=== PATIENT | male | born 1955 | race Caucasian/White ===

== ENCOUNTER 2022-04-25 14:25 | Inpatient (IN) | payer OTHER ==
[~2022-04-25] VITALS: Ht 177.8 cm; Wt 79.3 kg
[2022-04-25 15:07] LABS: BASOPHILS % (AUTO) 0.8 % (0.0-5.0); EOSINOPHILS % (AUTO) 5.4 % (0.0-8.0); HEMATOCRIT 36.2 % (42-54); LYMPHOCYTES % (AUTO) 22.2 % (21.0-51.0); MEAN CORPUSCULAR HEMOGLOBIN 27.5 pg (27.0-33.0); MEAN CORPUSCULAR HGB CONC 32.9 g/dL (32.0-36.0); MEAN CORPUSCULAR VOLUME 83.8 fL (79-99); NEUTROPHILS % (AUTO) 60.1 % (40.0-77.0); PLATELET COUNT (AUTO) 375 K/uL (130-400); RED BLOOD CELL COUNT(AUTO) 4.32 MIL/uL (4.50-6.20); RED CELL DISTRIBUTION WIDTH 14.9 % (11.0-15.5); WHITE BLOOD COUNT (AUTO) 8.9 K/uL (4.8-10.8)
[2022-04-25 15:30] LABS: ALBUMIN 2.9 g/dL (3.5-5.0); CREATININE 0.8 mg/dL (0.5-1.5); POTASSIUM 3.7 mmol/L (3.5-5.1); TOTAL PROTEIN, SERUM 7.6 g/dL (6.0-8.3)
[2022-04-25] MEDS ORDERED: CEFTRIAXONE 1G VIAL IVP ONE (15:30)
[2022-04-25] MEDS ORDERED: AZITHROMYCIN 500MG+NS 250ML IVPB SCH (15:30)
[2022-04-25] MEDS ORDERED: IPRATROPIUM/ALBUTEROL SULFATE 3 ML SOLUTION IH ONE (15:30)
[2022-04-25 16:56] LABS: APPEARANCE,URINE CLEAR (CLEAR); BILIRUBIN,URINE NEGATIVE (NEGATIVE); COLOR,URINE YELLOW (YELLOW); GLUCOSE, URINE (UA) NEGATIVE (NEGATIVE); KETONES,URINE NEGATIVE (NEGATIVE); LEUKOCYTE ESTERASE ,URINE NEGATIVE (NEGATIVE); NITRATE,URINE NEGATIVE (NEGATIVE); OCCULT BLOOD,URINE NEGATIVE (NEGATIVE); PH,URINE 5.5 (5.0-8.0); PROTEIN,URINE NEGATIVE (NEGATIVE); UROBILINOGEN,URINE 0.2 mg/dL (0.2-1.0)
[2022-04-25] MEDS ORDERED: 0.9% NACL 500ML IV.SOLN 500 ML IV ONE (17:00)
[2022-04-25] MEDS ORDERED: CEFEPIME HCL 2 GM VIAL IVP SCH (17:30)
[2022-04-25] MEDS ORDERED: VANCOMYCIN PROTOCOL PER PHARMACY IV SCH (17:30)
[2022-04-25] MEDS ORDERED: COMPOUND IV REFRIGERATED 1 EACH IVSOLN MISC PRN (18:00)
[2022-04-25 18:29] LABS: HEMOGLOBIN A1C 6.6 % (4.0-6.0)
[2022-04-25 19:16] LABS: CRP QUANTITATIVE 34.5 mg/L (0.00-9.0); THYROID STIMULATING HORMONE 2.14 uIU/mL (0.36-3.74)
[2022-04-25] MEDS: 0.9%NACL 1000ML 1,000 ML IV SCH (19:34)
[2022-04-25] MEDS: VANCOMYCIN 1.25GM/NS 250ML IVPB SCH ×2 (19:34)
[2022-04-25] MEDS: INSULIN HUMULIN R 100 UNIT/ML 3ML SQ SCH (21:00)
[2022-04-25] MEDS: DOXYCYCLINE HYCLATE 100 MG TABLET PO SCH (21:13)
[2022-04-25] MEDS: CEFEPIME HCL 2 GM VIAL IVP SCH (21:13)
[2022-04-26 01:39] VITALS: BP 154/72
[2022-04-26 04:31] VITALS: BP 146/87
[2022-04-26] MEDS: CEFEPIME HCL 2 GM VIAL IVP SCH ×3 (05:00→21:10)
[2022-04-26] MEDS: INSULIN HUMULIN R 100 UNIT/ML 3ML SQ SCH ×4 (06:46→21:00)
[2022-04-26 07:12] LABS: BASOPHILS % (AUTO) 0.6 % (0.0-5.0); HEMATOCRIT 33.6 % (42-54); LYMPHOCYTES % (AUTO) 18.4 % (21.0-51.0); MEAN CORPUSCULAR HEMOGLOBIN 27.4 pg (27.0-33.0); MEAN CORPUSCULAR HGB CONC 32.7 g/dL (32.0-36.0); MEAN CORPUSCULAR VOLUME 83.8 fL (79-99); MONOCYTES % (AUTO) 8.7 % (3.0-13.0); NEUTROPHILS % (AUTO) 65.9 % (40.0-77.0); PLATELET COUNT (AUTO) 298 K/uL (130-400); RED BLOOD CELL COUNT(AUTO) 4.01 MIL/uL (4.50-6.20); RED CELL DISTRIBUTION WIDTH 14.9 % (11.0-15.5); WHITE BLOOD COUNT (AUTO) 7.8 K/uL (4.8-10.8)
[2022-04-26 07:46] LABS: ABG BASE EXCESS 2.9 mmol/L (-2.0-3.0); ABG HCO3 27.1 mmol/L (21.0-28.0); ABG OXYGEN SATURATION 93.8 % (95.0-99.0); ABG PCO2 40 mmHg (35-48)
[2022-04-26 08:00] VITALS: BP 148/81
[2022-04-26 08:03] LABS: ALBUMIN 2.7 g/dL (3.5-5.0); CREATININE 0.8 mg/dL (0.5-1.5); MAGNESIUM 1.6 mg/dL (1.80-2.40); POTASSIUM 3.6 mmol/L (3.5-5.1); TOTAL PROTEIN, SERUM 7.1 g/dL (6.0-8.3)
[2022-04-26 08:08] LABS: INR 0.99 (0.85-1.15); PROTHROMBIN TIME 10.8 SEC (9.6-11.6)
[2022-04-26 08:09] LABS: PARTIAL THROMBOPLASTIN TIME 31.9 SEC (26.3-35.5)
[2022-04-26] MEDS: DOXYCYCLINE HYCLATE 100 MG TABLET PO SCH ×2 (08:22→21:10)
[2022-04-26] MEDS: PANTOPRAZOLE 40 MG TAB DR PO SCH (08:22)
[2022-04-26] MEDS: VANCOMYCIN 1.25GM/NS 250ML IVPB SCH ×2 (08:23)
[2022-04-26] MEDS: 0.9%NACL 1000ML 1,000 ML IV SCH (08:25)
[2022-04-26] MEDS: NICOTINE 14 MG/ 24 HR PATCH TD SCH (08:28)
[2022-04-26] MEDS ORDERED: MAGNESIUM 2GM PREMIX 50ML 50 ML IV PRN (09:00)
[2022-04-26] MEDS: IPRATROPIUM/ALBUTEROL SULFATE 3 ML SOLUTION IH PRN ×3 (11:17→23:07)
[2022-04-26 11:22] VITALS: BP 142/79
[2022-04-26] MEDS ORDERED: BUPR100T13 PO (12:37)
[2022-04-26] MEDS ORDERED: FLUT1BLS12 IH (12:37)
[2022-04-26] MEDS ORDERED: BICA50TA7 PO (12:37)
[2022-04-26] MEDS ORDERED: HYDR-4068 PO (12:37)
[2022-04-26] MEDS ORDERED: LISI10TA24 PO (12:37)
[2022-04-26] MEDS ORDERED: BUPR-113 PO (12:37)
[2022-04-26] MEDS ORDERED: KETO5DRO6 OP (12:37)
[2022-04-26] MEDS ORDERED: AMLO-257 PO (13:20)
[2022-04-26 16:00] VITALS: BP 131/71
[2022-04-26 20:38] VITALS: BP 136/70
[2022-04-26] MEDS ORDERED: SOLU-MEDROL 40MG VIAL IVP SCH (21:00)
[2022-04-27] MEDS: 0.9%NACL 1000ML 1,000 ML IV SCH (00:18)
[2022-04-27 00:20] VITALS: BP 130/68
[2022-04-27] MEDS: CEFEPIME HCL 2 GM VIAL IVP SCH ×3 (04:04→20:56)
[2022-04-27 04:40] VITALS: BP 147/78
[2022-04-27] MEDS: INSULIN HUMULIN R 100 UNIT/ML 3ML SQ SCH (06:08)
[2022-04-27] MEDS: IPRATROPIUM/ALBUTEROL SULFATE 3 ML SOLUTION IH PRN ×3 (06:38→18:44)
[2022-04-27 07:04] LABS: BASOPHILS % (AUTO) 0.7 % (0.0-5.0); EOSINOPHILS % (AUTO) 6.4 % (0.0-8.0); LYMPHOCYTES % (AUTO) 21.7 % (21.0-51.0); MEAN CORPUSCULAR HEMOGLOBIN 27.4 pg (27.0-33.0); MEAN CORPUSCULAR HGB CONC 32.1 g/dL (32.0-36.0); MEAN CORPUSCULAR VOLUME 85.3 fL (79-99); MONOCYTES % (AUTO) 9.5 % (3.0-13.0); NEUTROPHILS % (AUTO) 61.4 % (40.0-77.0); PLATELET COUNT (AUTO) 281 K/uL (130-400); RED BLOOD CELL COUNT(AUTO) 3.87 MIL/uL (4.50-6.20); RED CELL DISTRIBUTION WIDTH 15.4 % (11.0-15.5); WHITE BLOOD COUNT (AUTO) 6.7 K/uL (4.8-10.8)
[2022-04-27 07:26] LABS: ALBUMIN 2.5 g/dL (3.5-5.0); CREATININE 0.9 mg/dL (0.5-1.5); POTASSIUM 3.5 mmol/L (3.5-5.1); TOTAL PROTEIN, SERUM 6.6 g/dL (6.0-8.3)
[2022-04-27 08:00] VITALS: BP 153/80
[2022-04-27] MEDS: DOXYCYCLINE HYCLATE 100 MG TABLET PO SCH ×2 (08:53→20:56)
[2022-04-27] MEDS: NICOTINE 14 MG/ 24 HR PATCH TD SCH (08:54)
[2022-04-27] MEDS: PANTOPRAZOLE 40 MG TAB DR PO SCH (08:54)
[2022-04-27] MEDS ORDERED: ETHAMBUTOL HCL 400 MG TABLET PO SCH (09:00)
[2022-04-27] MEDS ORDERED: PYRAZINAMIDE 500 MG TABLET PO SCH (09:00)
[2022-04-27] MEDS ORDERED: ISONIAZID 300 MG TAB PO SCH (09:00)
[2022-04-27] MEDS ORDERED: RIFAMPIN 300 MG CAPSULE PO SCH (09:00)
[2022-04-27] MEDS ORDERED: AMLODIPINE 5 MG TAB PO ONE (11:30)
[2022-04-27] MEDS ORDERED: LISINOPRIL 10 MG TABLET PO SCH (11:30)
[2022-04-27 12:00] VITALS: BP 135/72
[2022-04-27] MEDS: AMLODIPINE 5 MG TAB PO SCH (12:59)
[2022-04-27] MEDS ORDERED: SODIUM CHLORIDE 7% INHALATION 4 ML VIAL.NEB IH ONE (15:55)
[2022-04-27 16:00] VITALS: BP 142/75
[2022-04-27] MEDS ORDERED: VANCOMYCIN PROTOCOL PER PHARMACY IV SCH (16:00)
[2022-04-27] MEDS: HYDROCODONE/ACETAMINOPHEN 10/325 MG TAB PO PRN (19:00)
[2022-04-27] MEDS: BUDESONIDE 0.5 MG/2 ML INH IH SCH (19:02)
[2022-04-27] MEDS: VANCOMYCIN 1.25 GM/250 ML BAG 250 ML IV SCH (19:13)
[2022-04-27 20:22] VITALS: BP 152/78
[2022-04-27] MEDS: KETOTIFEN FUMARATE OP SCH (21:00)
[2022-04-28 01:27] VITALS: BP 125/77
[2022-04-28] MEDS: CEFEPIME HCL 2 GM VIAL IVP SCH ×3 (03:42→20:10)
[2022-04-28] MEDS: HYDROCODONE/ACETAMINOPHEN 10/325 MG TAB PO PRN ×3 (03:56→20:11)
[2022-04-28 04:06] VITALS: BP 126/69
[2022-04-28] MEDS: BUDESONIDE 0.5 MG/2 ML INH IH SCH ×2 (07:09→18:58)
[2022-04-28 07:53] LABS: BASOPHILS % (AUTO) 0.7 % (0.0-5.0); EOSINOPHILS % (AUTO) 5.9 % (0.0-8.0); LYMPHOCYTES % (AUTO) 15.9 % (21.0-51.0); MEAN CORPUSCULAR HEMOGLOBIN 27.6 pg (27.0-33.0); MEAN CORPUSCULAR VOLUME 83.5 fL (79-99); MONOCYTES % (AUTO) 8.1 % (3.0-13.0); PLATELET COUNT (AUTO) 321 K/uL (130-400); RED BLOOD CELL COUNT(AUTO) 3.95 MIL/uL (4.50-6.20); RED CELL DISTRIBUTION WIDTH 15.2 % (11.0-15.5); WHITE BLOOD COUNT (AUTO) 8.1 K/uL (4.8-10.8)
[2022-04-28 08:00] VITALS: BP 126/60
[2022-04-28 08:11] LABS: CREATININE 0.9 mg/dL (0.5-1.5); POTASSIUM 3.8 mmol/L (3.5-5.1)
[2022-04-28] MEDS: VANCOMYCIN 1.25 GM/250 ML BAG 250 ML IV SCH ×2 (08:11→20:11)
[2022-04-28] MEDS: DOXYCYCLINE HYCLATE 100 MG TABLET PO SCH ×2 (08:12→20:11)
[2022-04-28] MEDS: AMLODIPINE 5 MG TAB PO SCH (08:12)
[2022-04-28] MEDS: NICOTINE 14 MG/ 24 HR PATCH TD SCH (08:12)
[2022-04-28] MEDS: BUPROPION HCL 150 MG TABLET.SA PO SCH (08:13)
[2022-04-28] MEDS: KETOTIFEN FUMARATE OP SCH ×2 (08:13→20:33)
[2022-04-28] MEDS: PANTOPRAZOLE 40 MG TAB DR PO SCH (08:13)
[2022-04-28] MEDS: BICALUTAMIDE 50 MG PO SCH (08:13)
[2022-04-28] MEDS: BUPROPION HCL 100 MG PO SCH (08:13)
[2022-04-28] MEDS ORDERED: LISINOPRIL 10 MG TABLET PO SCH (09:00)
[2022-04-28] MEDS ORDERED: AMLODIPINE 5 MG TAB PO SCH (09:00)
[2022-04-28] MEDS ORDERED: PYRIDOXINE HCL 50 MG TABLET PO SCH (09:00)
[2022-04-28 12:13] VITALS: BP 105/56
[2022-04-28 16:16] VITALS: BP 134/71
[2022-04-28] MEDS: IPRATROPIUM/ALBUTEROL SULFATE 3 ML SOLUTION IH PRN ×2 (18:45→23:07)
[2022-04-28 20:00] VITALS: BP 131/73
[2022-04-28] MEDS: FAMOTIDINE 20MG VIAL IV SCH (20:10)
[2022-04-29] VITALS (7 sets, daily range): BP systolic 122–142; BP diastolic 76–93
[2022-04-29] MEDS: HYDROCODONE/ACETAMINOPHEN 10/325 MG TAB PO PRN ×3 (03:36→20:36)
[2022-04-29] MEDS: CEFEPIME HCL 2 GM VIAL IVP SCH ×3 (03:36→20:34)
[2022-04-29 04:32] LABS: BASOPHILS % (AUTO) 0.7 % (0.0-5.0); EOSINOPHILS % (AUTO) 8.6 % (0.0-8.0); LYMPHOCYTES % (AUTO) 19.6 % (21.0-51.0); MEAN CORPUSCULAR HEMOGLOBIN 27.4 pg (27.0-33.0); MEAN CORPUSCULAR HGB CONC 32.4 g/dL (32.0-36.0); MEAN CORPUSCULAR VOLUME 84.6 fL (79-99); MONOCYTES % (AUTO) 9.3 % (3.0-13.0); NEUTROPHILS % (AUTO) 61.3 % (40.0-77.0); PLATELET COUNT (AUTO) 321 K/uL (130-400); RED BLOOD CELL COUNT(AUTO) 4.02 MIL/uL (4.50-6.20); RED CELL DISTRIBUTION WIDTH 15.4 % (11.0-15.5); WHITE BLOOD COUNT (AUTO) 7.7 K/uL (4.8-10.8)
[2022-04-29 05:07] LABS: CREATININE 0.9 mg/dL (0.5-1.5); MAGNESIUM 1.6 mg/dL (1.80-2.40); PHOSPHORUS 3.6 mg/dL (2.5-4.9); POTASSIUM 3.5 mmol/L (3.5-5.1); THYROID STIMULATING HORMONE 3.35 uIU/mL (0.36-3.74)
[2022-04-29] MEDS: BUDESONIDE 0.5 MG/2 ML INH IH SCH ×2 (06:44→19:26)
[2022-04-29] MEDS: IPRATROPIUM/ALBUTEROL SULFATE 3 ML SOLUTION IH PRN ×2 (06:45→19:13)
[2022-04-29] MEDS: BUPROPION HCL 150 MG TABLET.SA PO SCH (07:45)
[2022-04-29] MEDS: DOXYCYCLINE HYCLATE 100 MG TABLET PO SCH ×2 (07:45→20:36)
[2022-04-29] MEDS: NICOTINE 14 MG/ 24 HR PATCH TD SCH (07:45)
[2022-04-29] MEDS: PANTOPRAZOLE 40 MG TAB DR PO SCH (07:45)
[2022-04-29] MEDS: ENOXAPARIN SODIUM 40 MG/0.4 ML SYRINGE SQ SCH (07:46)
[2022-04-29] MEDS: FAMOTIDINE 20MG VIAL IV SCH ×2 (07:46→20:36)
[2022-04-29] MEDS: AMLODIPINE 5 MG TAB PO SCH (07:46)
[2022-04-29] MEDS: IRON SUCROSE COMPLEX 300 MG in 0.9%NACL 50ML 50 ML IV SCH (07:48)
[2022-04-29] MEDS: FOLIC ACID 5 MG/ML VIAL IV SCH (07:48)
[2022-04-29] MEDS ORDERED: COMPOUND IV MISC 1 EACH IVSOLN MISC PRN (08:00)
[2022-04-29] MEDS ORDERED: COMPOUND IV REFRIGERATED 1 EACH IVSOLN MISC PRN (08:00)
[2022-04-29] MEDS: KETOTIFEN FUMARATE OP SCH ×2 (08:50→20:36)
[2022-04-29] MEDS: BUPROPION HCL 100 MG PO SCH (08:50)
[2022-04-29] MEDS: BICALUTAMIDE 50 MG PO SCH (08:50)
[2022-04-29] MEDS: LISINOPRIL 5 MG TABLET PO SCH (08:54)
[2022-04-29] MEDS: VANCOMYCIN 1.25 GM/250 ML BAG 250 ML IV SCH ×2 (09:02→20:35)
[2022-04-29] MEDS ORDERED: KCL 20 MEQ ERTAB PO SCH (19:00)
[2022-04-30] MEDS: CEFEPIME HCL 2 GM VIAL IVP SCH ×3 (03:36→20:30)
[2022-04-30] MEDS: HYDROCODONE/ACETAMINOPHEN 10/325 MG TAB PO PRN ×3 (03:59→20:39)
[2022-04-30 04:21] VITALS: BP 123/62
[2022-04-30 04:25] LABS: BASOPHILS % (AUTO) 0.9 % (0.0-5.0); EOSINOPHILS % (AUTO) 9.5 % (0.0-8.0); HEMATOCRIT 33.7 % (42-54); LYMPHOCYTES % (AUTO) 20.1 % (21.0-51.0); MEAN CORPUSCULAR HEMOGLOBIN 27.4 pg (27.0-33.0); MEAN CORPUSCULAR HGB CONC 32.6 g/dL (32.0-36.0); MEAN CORPUSCULAR VOLUME 83.8 fL (79-99); MONOCYTES % (AUTO) 10.5 % (3.0-13.0); NEUTROPHILS % (AUTO) 58.4 % (40.0-77.0); PLATELET COUNT (AUTO) 315 K/uL (130-400); RED BLOOD CELL COUNT(AUTO) 4.02 MIL/uL (4.50-6.20); RED CELL DISTRIBUTION WIDTH 15.4 % (11.0-15.5); WHITE BLOOD COUNT (AUTO) 8.5 K/uL (4.8-10.8)
[2022-04-30 04:36] LABS: INR 0.98 (0.85-1.15); PROTHROMBIN TIME 10.7 SEC (9.6-11.6)
[2022-04-30 04:38] LABS: PARTIAL THROMBOPLASTIN TIME 34.5 SEC (26.3-35.5)
[2022-04-30 04:41] LABS: CREATININE 0.9 mg/dL (0.5-1.5); POTASSIUM 4.2 mmol/L (3.5-5.1)
[2022-04-30 07:10] VITALS: BP 119/72
[2022-04-30] MEDS: ACETYLCYSTEINE 10% 100MG/ML 4ML VIAL IH PRN ×2 (07:11→11:36)
[2022-04-30] MEDS: IPRATROPIUM/ALBUTEROL SULFATE 3 ML SOLUTION IH PRN ×3 (07:11→18:51)
[2022-04-30] MEDS: IRON SUCROSE COMPLEX 300 MG in 0.9%NACL 50ML 50 ML IV SCH (07:25)
[2022-04-30] MEDS: BUDESONIDE 0.5 MG/2 ML INH IH SCH ×2 (07:28→18:51)
[2022-04-30] MEDS: VANCOMYCIN 1.25 GM/250 ML BAG 250 ML IV SCH ×2 (08:12→20:38)
[2022-04-30] MEDS: DOXYCYCLINE HYCLATE 100 MG TABLET PO SCH ×2 (08:13→20:30)
[2022-04-30] MEDS: PANTOPRAZOLE 40 MG TAB DR PO SCH (08:13)
[2022-04-30] MEDS: AMLODIPINE 5 MG TAB PO SCH (08:13)
[2022-04-30] MEDS: BUPROPION HCL 150 MG TABLET.SA PO SCH (08:13)
[2022-04-30] MEDS: NICOTINE 14 MG/ 24 HR PATCH TD SCH (08:13)
[2022-04-30] MEDS: FAMOTIDINE 20MG VIAL IV SCH ×2 (08:13→20:30)
[2022-04-30] MEDS: LISINOPRIL 5 MG TABLET PO SCH (08:14)
[2022-04-30] MEDS: ENOXAPARIN SODIUM 40 MG/0.4 ML SYRINGE SQ SCH (08:15)
[2022-04-30] MEDS: BUPROPION HCL 100 MG PO SCH (08:24)
[2022-04-30] MEDS: KETOTIFEN FUMARATE OP SCH ×2 (08:24→21:00)
[2022-04-30] MEDS: BICALUTAMIDE 50 MG PO SCH (08:24)
[2022-04-30] MEDS: FOLIC ACID 5 MG/ML VIAL IV SCH (08:56)
[2022-04-30 11:00] VITALS: BP 136/72
[2022-04-30 19:27] VITALS: BP 137/64
[2022-04-30] MEDS: 0.9%NACL 10ML VIAL IV SCH (20:29)
[2022-04-30] MEDS: IPRATROPIUM/ALBUTEROL SULFATE 3 ML SOLUTION IH SCH (23:26)
[2022-04-30 23:35] VITALS: BP 144/93
[2022-05-01 03:33] VITALS: BP 138/78
[2022-05-01] MEDS: CEFEPIME HCL 2 GM VIAL IVP SCH (04:44)
[2022-05-01 05:17] LABS: BASOPHILS % (AUTO) 0.6 % (0.0-5.0); HEMATOCRIT 34.8 % (42-54); MEAN CORPUSCULAR HEMOGLOBIN 27.6 pg (27.0-33.0); MEAN CORPUSCULAR HGB CONC 32.8 g/dL (32.0-36.0); MEAN CORPUSCULAR VOLUME 84.3 fL (79-99); PLATELET COUNT (AUTO) 313 K/uL (130-400); RED BLOOD CELL COUNT(AUTO) 4.13 MIL/uL (4.50-6.20); RED CELL DISTRIBUTION WIDTH 15.5 % (11.0-15.5); WHITE BLOOD COUNT (AUTO) 9.3 K/uL (4.8-10.8)
[2022-05-01 05:31] LABS: CREATININE 1.1 mg/dL (0.5-1.5); POTASSIUM 3.7 mmol/L (3.5-5.1)
[2022-05-01] MEDS: IPRATROPIUM/ALBUTEROL SULFATE 3 ML SOLUTION IH SCH ×2 (06:40→11:20)
[2022-05-01] MEDS: BUDESONIDE 0.5 MG/2 ML INH IH SCH (06:40)
[2022-05-01 07:31] VITALS: BP 126/80
[2022-05-01] MEDS: 0.9%NACL 10ML VIAL IV SCH (08:20)
[2022-05-01] MEDS: BUPROPION HCL 100 MG PO SCH (08:21)
[2022-05-01] MEDS: KETOTIFEN FUMARATE OP SCH (08:21)
[2022-05-01] MEDS: BICALUTAMIDE 50 MG PO SCH (08:21)
[2022-05-01] MEDS: VANCOMYCIN 1.25 GM/250 ML BAG 250 ML IV SCH (09:49)
[2022-05-01] MEDS: NICOTINE 14 MG/ 24 HR PATCH TD SCH (09:50)
[2022-05-01] MEDS: PANTOPRAZOLE 40 MG TAB DR PO SCH (09:50)
[2022-05-01] MEDS: DOXYCYCLINE HYCLATE 100 MG TABLET PO SCH (09:50)
[2022-05-01] MEDS: LISINOPRIL 5 MG TABLET PO SCH (09:50)
[2022-05-01] MEDS: BUPROPION HCL 150 MG TABLET.SA PO SCH (09:50)
[2022-05-01] MEDS: ENOXAPARIN SODIUM 40 MG/0.4 ML SYRINGE SQ SCH (09:50)
[2022-05-01] MEDS: FAMOTIDINE 20MG VIAL IV SCH (09:50)
[2022-05-01] MEDS: AMLODIPINE 5 MG TAB PO SCH (09:50)
[2022-05-01] MEDS: FOLIC ACID 5 MG/ML VIAL IV SCH (09:51)
[2022-05-01] MEDS: IRON SUCROSE COMPLEX 300 MG in 0.9%NACL 50ML 50 ML IV SCH (09:55)
[2022-05-01] MEDS ORDERED: LORAZEPAM 0.5 MG TABLET PO PRN (10:00)
[2022-05-01] MEDS ORDERED: DOXY100T2 PO (10:10)
[2022-05-01] MEDS ORDERED: LINE600T14 PO (10:10)
[2022-05-01] MEDS ORDERED: LISI5TAB21 PO (10:10)
[2022-05-01] MEDS ORDERED: AZIT250T9 PO (17:58)
== END 2022-05-01 11:30 | disposition home or self-care (01) | DRG 177 ==
LOC: EDH 14:25 → EDHIP 17:09 → 2AH 04-26 01:26
PROVIDERS: ADMIT Internal Medicine; ATTEND Internal Medicine
PROC: 5A09357 Assistance with Respiratory Ventilation, Less than 24 Consecutive Hours, Continuous Positive Airway Pressure (ICD-10-PCS; principal; 2022-05-01)
DX: J15.212 Pneumonia due to Methicillin resistant Staphylococcus aureus (principal); E43 Unspecified severe protein-calorie malnutrition; J96.21 Acute and chronic respiratory failure with hypoxia; J44.0 Chronic obstructive pulmonary disease with (acute) lower respiratory infection; J15.7 Pneumonia due to Mycoplasma pneumoniae; E11.9 Type 2 diabetes mellitus without complications; E78.5 Hyperlipidemia, unspecified; I10 Essential (primary) hypertension; F17.210 Nicotine dependence, cigarettes, uncomplicated; D50.9 Iron deficiency anemia, unspecified; E66.9 Obesity, unspecified; Z85.46 Personal history of malignant neoplasm of prostate; Z87.442 Personal history of urinary calculi; Z90.49 Acquired absence of other specified parts of digestive tract; Z92.3 Personal history of irradiation; Z20.822 Contact with and (suspected) exposure to COVID-19; Z68.25 Body mass index [BMI] 25.0-25.9, adult; G25.81 Restless legs syndrome; K21.9 Gastro-esophageal reflux disease without esophagitis; G47.33 Obstructive sleep apnea (adult) (pediatric); Z79.899 Other long term (current) drug therapy; R53.81 Other malaise; Z99.81 Dependence on supplemental oxygen
CPT/HCPCS: 36415; 36600; 71045; 71250; 80048; 80053; 80202; 81003; 82728; 82746; 82803; 82948; 83036; 83540; 83550; 83735; 83880; 84100; 84145; 84153; 84443; 84484; 85025; 85045; 85610; 85651; 85730; 86140; 86480; 86738; 87040; 87071; 87077; 87116; 87186; 87205; 87206; 87449; 87556; 87635; 87804; 93005; 94640; 94667; C9803; G0378; J0456; J0692; J0696; J1650; J1756; J3370; J3475; J3490; J7030; J7050; J7608